=== PATIENT | male | born 1975 | race Caucasian/White ===

== ENCOUNTER 2018-03-04 12:12 | Emergency (ER) | payer SELFPAY ==
[~2018-03-04] VITALS: Ht 172.7 cm; Wt 79.0 kg
[2018-03-04] MEDS ORDERED: IBUPROFEN 600MG TABLET PO ONE (14:00)
[2018-03-04 14:09] VITALS: BP 132/83
== END 2018-03-04 14:15 | disposition home or self-care (01) ==
LOC: ER 12:27
DX: S06.9X9A Unspecified intracranial injury with loss of consciousness of unspecified duration, initial encounter (principal); Y00.XXXA Assault by blunt object, initial encounter; R03.0 Elevated blood-pressure reading, without diagnosis of hypertension; Y93.89 Activity, other specified; Y92.89 Other specified places as the place of occurrence of the external cause
CPT/HCPCS: 99284